=== PATIENT | female | born 1940 | race Caucasian/White ===

== ENCOUNTER 2018-10-02 02:57 | Emergency (ER) | payer MEDICARE ==
[~2018-10-02] VITALS: Ht 149.9 cm; Wt 50.8 kg
[~2018-10-02 02:57] MED LIST: BYSTOLIC5 MG PO; LISI-334 PO; METF500T16 PO
[2018-10-02 03:05] VITALS: BP 168/80
[2018-10-02] MEDS ORDERED: HYDR25CA PO (03:25)
[2018-10-02] MEDS ORDERED: ZOLP5TAB PO (03:25)
--- NOTE | 2018-10-02 03:25 | PHYS DOC ---
Adult General Chief Complaint Chief Complaint: Insomnia HPI HPI Patient is 78-year-old female who presents with complaint of anxiety and insomnia. Patient states that she was not able to go to sleep tonight and became very anxious and so woke her up and called the ambulance to come in to treat her anxiety. She denies any chest pain or shortness of breath. She denies any fever. She denies any suicidal or homicidal ideations. Patient states that she just can't sleep. Review of Systems Review of Systems Constitutional: Denies fever or chills [] Respiratory: Denies cough or shortness of breath [] Cardiovascular: No additional information not addressed in HPI [] GI: Denies abdominal pain, nausea, vomiting or diarrhea [] Neurologic: Denies headache, focal weakness or sensory changes [] Psychiatric: Complains of anxiety and sleeplessness. [] Allergies Allergies Allergies Coded Allergies Type Severity Reaction Last Updated Verified Penicillins Allergy Unknown 01/12/15 Yes azithromycin Allergy Unknown 01/12/15 Yes Physical Exam Physical Exam Constitutional: Well developed, well nourished, no acute distress, non-toxic appearance. [] HENT: Normocephalic, atraumatic. [] Eyes: PERRLA, EOMI, conjunctiva normal, no discharge. [] Neck: Normal range of motion, no tenderness, supple, no stridor. [] Cardiovascular: Regular rate and rhythm [] Lungs & Thorax: Bilateral breath sounds clear to auscultation [] Neurologic: Alert and oriented X 3, no focal deficits noted. [] Psychologic: Affect normal, judgement normal, mood normal. [] EKG EKG [] Radiology/Procedures Radiology/Procedures [] Course & Med Decision Making Course & Med Decision Making Pertinent Labs and Imaging studies reviewed. (See chart for details) [] Dragon Disclaimer Dragon Disclaimer This electronic medical record was generated, in whole or in part, using a voice recognition dictation system. Departure Departure Impression: Primary Impression: Anxiety disorder Additional Impression: Insomnia Disposition: 01 HOME, SELF-CARE Condition: STABLE Referrals: UNKNOWN PCP NAME (PCP) Patient Instructions: Anxiety and Panic Attacks, Insomnia Scripts Hydroxyzine Pamoate (VISTARIL) 25 Mg Capsule 1 CAP PO QHS PRN for ANXIETY, #15 CAP 1 Refill Prov: RONNY MERLOS Jr. DO 10/02/18 Zolpidem Tartrate (AMBIEN) 5 Mg Tablet 5 MG PO PRN QHS PRN for INSOMNIA, #7 TAB 0 Refills Prov: RONNY MERLOS Jr. DO 10/02/18 Problem Qualifiers Primary Impression: Anxiety disorder Anxiety disorder type: unspecified anxiety disorder Qualified Codes: F41.9 - Anxiety disorder, unspecified Additional Impression: Insomnia Insomnia type: unspecified Qualified Codes: G47.00 - Insomnia, unspecified RONNY MERLOS Jr. DO Oct 02, 2018 03:25
[2018-10-02] MEDS ORDERED: LORazepam 1 MG TABLET PO ONE (03:30)
== END 2018-10-02 03:30 | disposition home or self-care (01) ==
LOC: ER 02:57
DX: F41.9 Anxiety disorder, unspecified (principal); G47.00 Insomnia, unspecified; Z88.0 Allergy status to penicillin; Z88.1 Allergy status to other antibiotic agents
CPT/HCPCS: 99284